=== PATIENT | male | born 1965 | race Asian ===

== ENCOUNTER 2017-08-10 08:43 | Emergency (ER) | payer BC, MEDICAID ==
[~2017-08-10] VITALS: Ht 157.5 cm; Wt 68.9 kg
[2017-08-10] MEDS ORDERED: cloNIDine HCL 0.1 MG TAB ONE (09:32)
[2017-08-10] MEDS ORDERED: cloNIDine HCL 0.1 MG TAB PO ONE (09:45)
[2017-08-10 10:14] LABS: Eosinophils # (auto) 0.1 uL; Mean Corpuscular Hemoglobin 35.7 pg (28.0-32.0); Mean Corpuscular Hgb Conc. 34.8 g/dL (32.0-36.0); Monocytes # (auto) 2.2 uL; Monocytes % (auto) 13.9 % (0.0-12.0)
[2017-08-10 10:17] LABS: Basophils # (auto) 0.1 uL; Basophils % (auto) 0.8 % (0.0-2.0); Eosinophils % (auto) 0.7 % (0.0-7.0); Hematocrit 55.2 % (41.0-53.0); Hemoglobin 19.2 g/dL (13.5-17.5); Lymphocytes # (auto) 3.6 uL; Lymphocytes % (auto) 22.6 % (10.0-50.0); Mean Corpuscular Volume 102.7 fL (80.0-100.0); Neutrophils # (auto) 9.8 uL; Nucleated Red Blood Cells % 0.2 %; Platelet Count (auto) 414 10^3/uL (140-450); Red Blood Cells 5.38 10^6/uL (4.5-5.90); White Blood Cell 15.8 10^3/uL (4.4-10.8)
[2017-08-10 10:38] LABS: Alanine Aminotransferase 55 U/L (16-61); Albumin 3.7 g/dL (3.4-5.0); Anion Gap 8 (5-15); Aspartate Aminotransferase 101 U/L (15-37); BUN/Creatinine Ratio 5.7; Blood Urea Nitrogen 5 mg/dL (7-18); Carbon Dioxide 26 mmol/L (21-32); Chloride 102 mmol/L (98-107); GFR African American 119 mL/min; GFR Non-African American 99 mL/min; Glucose 142 mg/dL (74-106); Magnesium 2.4 mg/dL (1.6-2.6); Potassium 4.7 mmol/L (3.5-5.1); Sodium 136 mmol/L (136-145)
[2017-08-10 10:43] LABS: Alkaline Phosphatase 178 U/L (45-117); Bilirubin, Total 1.2 mg/dL (0.2-1.0); Total Protein 8.8 g/dL (6.4-8.2)
[2017-08-10 12:30] VITALS: BP 174/99
== END 2017-08-10 12:48 | disposition home or self-care (01) ==
LOC: ER 08:43
DX: J02.9 Acute pharyngitis, unspecified (principal); F17.210 Nicotine dependence, cigarettes, uncomplicated
CPT/HCPCS: 36415; 70360; 80053; 83735; 84484; 85025